=== PATIENT | male | born 1965 | race Caucasian/White ===

== ENCOUNTER 2020-08-07 23:54 | Emergency (ER) | payer OTHER ==
[2020-08-08] MEDS ORDERED: Sulfamethoxazole/Trimethoprim 800-160 MG Tab PO ONE (00:31)
[2020-08-08] MEDS ORDERED: Ibuprofen 600 MG Tab PO ONE (00:31)
[2020-08-08] MEDS ORDERED: traMADol 50 MG Tab PO ONE (00:31)
--- NOTE | 2020-08-08 00:34 | EDM.PDOC ---
ED HPI GENERAL MEDICAL PROBLEM - General Chief Complaint: Genitourinary Problem Time Seen by Provider: 08/08/20 00:13 - History of Present Illness INITIAL COMMENTS - FREE TEXT/NARRATIVE: HISTORY AND PHYSICAL: History of present illness: This is a 55-year-old gentleman who presents ER today secondary to pain to his perineal region. Patient reports that he feels like developed a bump in that area several days ago has been having a lot of discomfort. Patient reports that has been utilizing cream that was prescribed to him for his dry feet to the area without any improvement. Patient denies any recent fevers, shakes, chills, nausea, vomiting, diarrhea, dysuria, frequency, urgency, chest pain, shortness of breath. Patient reports pain discomfort when wiping his bottom however no pain with bowel movements. Patient denies any change in appetite. Patient denies any urinary changes at this time. Review of systems: As per history of present illness and below otherwise all systems reviewed and negative. Past medical history: As per history of present illness and as reviewed below otherwise noncontributory. Surgical history: As per history of present illness and as reviewed below otherwise noncontributory. Social history: No reported history of drug or alcohol abuse. Family history: As per history of present illness and as reviewed below otherwise noncontributory. Physical exam: Constitutional: Patient is oriented to person, place, and time. Appears well- developed and well-nourished. No distress. HEENT: Moist mucous membranes Head: Normocephalic and atraumatic Eyes: Right eye exhibits no discharge. Left eye exhibits no discharge. No scleral icterus Neck: Normal range of motion. No tracheal deviation present. Cardiovascular: Normal rate and regular rhythm. Pulmonary: Effort normal, no respiratory distress. Abdominal: No distention Musculoskeletal: Normal range of motion Neurologic: Alert and oriented to person, place and time. Skin: [place], warm and dry. Psychiatric: Normal mood and affect. Behavior is normal. Judgment and thought content normal. Nursing note and vital signs have been reviewed Patient's ER physical exam is significant for a 1 x 1 cm fluctuant mass to his perianal region at approximately the 4 o'clock position while laying in his left lateral decub. Patient has no tenderness or discomfort with rectal/digital examination. There is no abscess or fluctuance identified on rectal/digital exam. On examination of the abscess, it appears to be draining a small amount of purulent material. I have been able to exude a small amount of pus however there is still some fluctuance identified in that area. This patient was seen and evaluated during the 2019 SARS-CoV-2 novel coronavirus pandemic period. Community viral transmission is ongoing at time of this encounter and the emergency department is operating under pandemic response procedures. Therapeutics: Bactrim DS 2 p.o. twice daily x10 days. Ibuprofen 600 mg p.o. every 6 hours as needed Ultram 51 tablet p.o. x1 in ED Assessment and plan: 55-year-old gentleman with a perirectal abscess identified in the ED that has already spontaneously started to drain. I have attempted to remove as much purulent material through the self draining lesion however there is still a significant amount of purulent material. Patient has consented to incision and drainage of the abscess. 3 cc of lidocaine 1% was utilized to anesthetize the skin of the abscess. Utilizing 11 blade scalpel, I 1 cm incision was made and a moderate amount of purulent material and thick cheesy plug was exuded from the abscess. Patient tolerated procedure well felt much better after the procedure was completed. Patient will need to have a wound check in 2 to 3 days. Reassessment at the time of disposition demonstrates that the patient is in no acute distress. The patient has remained stable throughout the entire ED visit and is without objective evidence for acute process requiring urgent intervention or hospitalization. The patient is stable for discharge, counseling is provided as documented above, discussed symptomatic treatment and specific conditions for return. I have spoken with the patient/caregiver and discussed todays findings, in addition to providing specific details for the plan of care. Questions are answered and there is agreement with the plan. Definitive disposition and diagnosis as appropriate pending reevaluation and review of above. Scrotum Pain Score (Numeric/FACES): 7 - Related Data Allergies Allergy/AdvReac Type Severity Reaction Status Date / Time No Known Allergies Allergy Verified 08/08/20 00:12 Home Meds: Home Meds Ibuprofen 600 mg PO Q6HR PRN #30 tablet 08/08/20 [Rx] Sulfamethoxazole/Trimethoprim [Bactrim Ds Tablet] 2 each PO BID #40 tablet 08/08/20 [Rx] Past Medical History - Past Health History Medical/Surgical History: Denies Medical/Surgical History Social & Family History - Tobacco Use Tobacco Use Status *Q: Never Tobacco User Second Hand Smoke Exposure: No - Recreational Drug Use Recreational Drug Use: Yes Drug Use in Last 12 Months: Yes Recreational Drug Type: Reports: Marijuana/Hashish ED ROS GENERAL - Review of Systems Review Of Systems: See Below ED EXAM, GENERAL - Physical Exam Exam: See Below ED GENERAL MEDICAL PROCEDURES - Additional/Other Procedure(s) Other (Free Text) Procedure(s): Incision and drainage of pararectal abscess performed. Verbal consent obtained from patient. Area cleansed and prepped utilizing Betadine solution. Utilizing 3 cc of 1% lidocaine the skin over the abscess was anesthetized. Utilizing 11 blade scalpel a 1 cm incision was made and a moderate amount of purulent materi al and thick cheesy plug was removed without difficulty. Patient tolerated procedure well. Course - Vital Signs Last Recorded V/S: Last Vital Signs Temp 98.3 F 08/08/20 00:03 Pulse 67 08/08/20 00:03 Resp 14 08/08/20 00:03 BP 118/76 08/08/20 00:03 Pulse Ox 97 08/08/20 00:03 - Orders/Labs/Meds Meds: Medications Discontinued Medications Generic Name Dose Route Start Last Admin Trade Name Freq PRN Reason Stop Dose Admin Ibuprofen 600 mg 08/08/20 00:31 Motrin PO 08/08/20 00:32 ONETIME ONE Lidocaine HCl 5 ml 08/08/20 00:20 08/08/20 00:29 Xylocaine-Mpf 1% INJECT 08/08/20 00:21 5 ml ONETIME ONE Administration Tramadol HCl 50 mg 08/08/20 00:31 Ultram PO 08/08/20 00:32 ONETIME ONE Trimethoprim/Sulfamethoxazole 2 tab 08/08/20 00:31 Septra Ds PO 08/08/20 00:32 ONETIME ONE Departure - Departure Time of Disposition: 00:30 Disposition: Home, Self-Care 01 Condition: Good Clinical Impression: Perirectal abscess - Discharge Information Prescriptions: Sulfamethoxazole/Trimethoprim [Bactrim Ds Tablet] 2 each PO BID #40 tablet Ibuprofen 600 mg PO Q6HR PRN #30 tablet PRN Reason: Pain Instructions: Anorectal Abscess Referrals: PCP,None [Primary Care Provider] - Forms: ED Department Discharge Additional Instructions: Your seen and evaluated in the ER today secondary to a perirectal abscess. Your abscess already began to drain spontaneously. We performed an incision and drainage of the abscess to remove some of the thicker material that was not draining on its own. You will be started on Bactrim DS 2 tablets twice a day for 10 days. You will need to have a wound check in 2 to 3 days by your doctor if there is any new or concerning symptoms that you develop or if there is any worsening pain or discomfort. The following information is given to patients seen in the emergency department who are being discharged to home. This information is to outline your options for follow-up care. We provide all patients seen in our emergency department with a follow-up referral. The need for follow-up, as well as the timing and circumstances, are variable depending upon the specifics of your emergency department visit. If you don't have a primary care physician on staff, we will provide you with a referral. We always advise you to contact your personal physician following an emergency department visit to inform them of the circumstance of the visit and for follow-up with them and/or the need for any referrals to a consulting specialist. The emergency department will also refer you to a specialist when appropriate. This referral assures that you have the opportunity for follow-up care with a specialist. All of these measure are taken in an effort to provide you with optimal care, which includes your follow-up. Under all circumstances we always encourage you to contact your private physician who remains a resource for coordinating your care. When calling for follow-up care, please make the office aware that this follow-up is from your recent emergency room visit. If for any reason you are refused follow-up, please contact the [facility] Emergency Department at and asked to speak to the emergency department charge nurse. [facility] - Primary Care [address] [place] [id number] [address] Sepsis Event Note (ED) - Evaluation Sepsis Screening Result: No Definite Risk - Focused Exam Vital Signs: Vital Signs Temp Pulse Resp BP Pulse Ox 08/08/20 00:03 98.3 F 67 14 118/76 97
== END 2020-08-08 00:55 | disposition home or self-care (01) ==
LOC: MW.ED 23:54
DX: K61.1 Rectal abscess (principal)
CPT/HCPCS: 46040; 99283; A9270; J2001; 10060

== ENCOUNTER 2020-10-25 10:38 | Emergency (ER) | payer MEDICAID ==
--- NOTE | 2020-10-25 10:43 | EDM.PDOC ---
ED HPI GENERAL MEDICAL PROBLEM - General Chief Complaint: Lower Extremity Injury/Pain Stated Complaint: RT LEG Time Seen by Provider: 10/25/20 10:39 Source of Information: Reports: Patient History Limitations: Reports: No Limitations - History of Present Illness INITIAL COMMENTS - FREE TEXT/NARRATIVE: HISTORY AND PHYSICAL: History of present illness: Is a 55-year-old male presents to the emergency department with complaints of cellulitis to the right knee. It was previously incarcerated in long-term when he noticed redness to the right knee. States he was prescribed Bactrim and was given these medications before he was released today. He stated that he thought he would "load his system" and took 3 tablets on an empty stomach this a.m. he now complains of nausea and wants an evaluation of his skin. He does report having frequency of cellulitis/abscess over the previous 3 months. Patient denies any fever, chills, headache, change in vision, syncope or near syncope. Denies any chest pain, back pain, shortness of breath or cough. Denies any abdominal pain, vomiting, diarrhea, constipation or dysuria. Has not noted any blood in urine or stool. Patient has been eating and drinking appropriately. Review of systems: As per history of present illness and below otherwise all systems reviewed and negative. Past medical history: As per history of present illness and as reviewed below otherwise noncontributory. Surgical history: As per history of present illness and as reviewed below otherwise noncontributory. Social history: See social history for further information Family history: As per history of present illness and as reviewed below otherwise noncontributory. Physical exam: General: Well developed and well nourished. Alert and orientated x 3. Nontoxic in appearance and in no acute distress. Vital signs are stable and have been reviewed by me. Nursing notes were reviewed. HEENT: Atraumatic, normocephalic, pupils equal and reactive bilaterally, negative for conjunctival pallor or scleral icterus, mucous membranes moist, TMs normal bilaterally, throat clear, neck supple, nontender, trachea midline. No drooling or trismus noted. No meningeal signs. No hot potato voice noted. Lungs: Clear to auscultation bilaterally. No wheezes, rales, or rhonchi. Chest nontender. Normal work of breathing, no accessory muscles used. Heart: S1S2, regular rate and rhythm without overt murmur, gallops, or rubs. No JVD. No peripheral edema Abdomen: Soft, nondistended, nontender. Normoactive bowel sounds. Negative for masses or costovertebral tenderness. Pelvis: Stable nontender. Genitourinary/Rectal: Deferred. Skin: Diffuse erythema a proximal palmar size to the right lateral knee. Small pustule at the right lateral patellar that is nonfluctuant. Remaining skin is intact, warm, dry. No lesions or rashes noted. Hematologic: No petechiae or purpra. Mucosa appropriate color and normal nail bed color and refill. Extremities: See skin. Atraumatic, moves all extremities per self without difficulty or deficits, negative for cords or calf pain. Neurovascular unremarkable. Neuro: Awake, alert, oriented. Cranial nerves II through XII unremarkable. Cerebellum unremarkable. Motor and sensory unremarkable throughout. Exam nonfocal. Psychiatric: Mood and affect are appropriate. Normal thought process. Answering questions appropriately. Notes: *This patient was seen and evaluated during the 2019 SARS-CoV-2 novel coronavirus pandemic period. Community viral transmission is ongoing at time of this encounter and the emergency department is operating under pandemic response procedures. Patient took his prescribed Bactrim although he took 3 tablets instead of the prescribed 1 tablet this a.m. We will do basic lab work to ensure that he is a ppropriate for discharge. He states he has used Bactrim in the past with good results. Bob the site with a surgical marker so the patient can monitor signs of improvement. Patient left prior to basic lab work and medication administration. She is stable is on appropriate antibiotics and will return if needed. Diagnostics: CBC, CMP Therapeutics: Zofran ODT Prescription: None Impression: Left AGAINST MEDICAL ADVICE [place] Definitive disposition and diagnosis as appropriate pending reevaluation and review of above. - Related Data Allergies Allergy/AdvReac Type Severity Reaction Status Date / Time No Known Allergies Allergy Verified 10/25/20 10:51 Home Meds: Home Meds Ibuprofen 600 mg PO Q6HR PRN #30 tablet 08/08/20 [Rx] Sulfamethoxazole/Trimethoprim [Bactrim Ds Tablet] 2 each PO BID #40 tablet 08/08/20 [Rx] Past Medical History - Past Health History Medical/Surgical History: Denies Medical/Surgical History Review of Systems - Review of Systems Review Of Systems: Comprehensive ROS is negative, except as noted in HPI. ED EXAM, GENERAL - Physical Exam Exam: See Below (See dictation) Course - Vital Signs Last Recorded V/S: Last Vital Signs Temp 98.2 F 10/25/20 10:40 Pulse 119 H 10/25/20 10:40 Resp 18 10/25/20 10:40 BP 158/96 H 10/25/20 10:40 Pulse Ox 97 10/25/20 10:40 - Orders/Labs/Meds Orders: Active Orders 24 hr Category Date Time Status CBC WITH AUTO DIFF [HEME] Stat Lab 10/25/20 10:52 Ordered CMP [COMPREHENSIVE METABOLIC PN,CMP] [CHEM] Stat Lab 10/25/20 10:53 Ordered Ondansetron [Zofran ODT] Med 10/25/20 10:52 Once 4 mg PO ONETIME ONE Medication Orders Ondansetron HCl (Ondansetron 4 Mg Tab.Dis) 4 mg PO ONETIME ONE Stop: 10/25/20 10:53 Meds: Medications Generic Name Dose Route Start Last Admin Trade Name [place] PRN Reason Stop Dose Admin Ondansetron HCl 4 mg 10/25/20 10:52 Ondansetron 4 Mg Tab.Dis PO 10/25/20 10:53 ONETIME ONE Departure - Departure Time of Disposition: 11:03 Disposition: Against Medical Advice 07 Clinical Impression: Left against medical advice Cellulitis Qualifiers: Site of cellulitis: extremity Site of cellulitis of extremity: lower extremity Laterality: right Qualified Code(s): L03.115 - Cellulitis of right lower limb - Discharge Information Forms: ED Department Discharge Sepsis Event Note (ED) - Focused Exam Vital Signs: Vital Signs Temp Pulse Resp BP Pulse Ox 10/25/20 10:40 98.2 F 119 H 18 158/96 H 97 - My Orders Last 24 Hours: My Active Orders 10/25/20 10:52 CBC WITH AUTO DIFF [HEME] Stat Ondansetron [Zofran ODT] 4 mg PO ONETIME ONE 10/25/20 10:53 CMP [COMPREHENSIVE METABOLIC PN,CMP] [CHEM] Stat - Assessment/Plan Last 24 Hours: My Active Orders 10/25/20 10:52 CBC WITH AUTO DIFF [HEME] Stat Ondansetron [Zofran ODT] 4 mg PO ONETIME ONE 10/25/20 10:53 CMP [COMPREHENSIVE METABOLIC PN,CMP] [CHEM] Stat
[2020-10-25] MEDS ORDERED: Ondansetron 4 MG Tab.DIS PO ONE (10:52)
== END 2020-10-25 11:02 | disposition left against medical advice (07) ==
LOC: MW.ED 10:38
DX: Z53.29 Procedure and treatment not carried out because of patient's decision for other reasons (principal); L03.115 Cellulitis of right lower limb
CPT/HCPCS: 99283

== ENCOUNTER 2020-10-28 20:06 | Emergency (ER) | payer MEDICAID ==
[2020-10-28] MEDS ORDERED: Cephalexin 500 MG Cap PO ONE (22:07)
--- NOTE | 2020-10-28 22:09 | EDM.PDOC ---
ED HPI GENERAL MEDICAL PROBLEM - General Chief Complaint: Lower Extremity Injury/Pain Stated Complaint: RT LEG INFECTION Time Seen by Provider: 10/28/20 20:40 Source of Information: Reports: Patient History Limitations: Reports: No Limitations - History of Present Illness INITIAL COMMENTS - FREE TEXT/NARRATIVE: HISTORY AND PHYSICAL: History of present illness: Patient is a 55-year-old male who presents to the ED today with concern of abscess to his right thigh that is worsened when he woke up this morning. Patient states he was seen in the ED a few days ago and has been taking Bactrim DS as prescribed to him. Patient states that at the time in the ED a few days ago, the area of infection was outlined. Patient states the area of infection has become smaller and is improving, however, when he woke up this morning, noticed an abscess that had developed. Patient states he still has been taking the Bactrim as prescribed to him. Patient denies any other associative s ymptoms. Patient denies fever, chills, chest pain, shortness of breath, or cough. Denies headache, neck stiff ness, change in vision, syncope, or near syncope. Denies nausea, vomiting, abdominal pain, diarrhea, constipation, or dysuria. Has not noted any blood in urine or stool. Patient has been eating and drinking appropriately. Review of systems: As per history of present illness and below otherwise all systems reviewed and negative. Past medical history: As per history of present illness and as reviewed below otherwise noncontributory. Surgical history: As per history of present illness and as reviewed below otherwise noncontributory. Social history: See social history for further information Family history: As per history of present illness and as reviewed below otherwise no ncontributory. Physical exam: General: Patient is alert, oriented, and in no acute distress. Patient sitting comfortably on exam table. Vitals stable and reviewed by me. HEENT: Atraumatic, normocephalic, pupils equal and reactive bilaterally, negative for conjunctival pallor or scleral icterus, mucous membranes moist, TMs normal bilaterally, throat clear, neck supple, nontender, trachea midline. No drooling or trismus noted. No meningeal signs. No hot potato voice noted. Lungs: Clear to auscultation, breath sounds equal bilaterally, chest nontender. Heart: S1S2, regular rate and rhythm without overt murmur Abdomen: Soft, nondistended, nontender. Negative for masses or hepatosplenomegaly. Negative for costovertebral tenderness. Pelvis: Stable nontender. Genitourinary: Deferred. Rectal: Deferred. Skin: Intact, warm, dry. No lesions or rashes noted. Extremities: There is a 3cm subcutaneous abscess of the right distal anterior thigh just superior to the knee that does not involve the knee joint. There is surrounding cellulitis noted of the abscess. Patient has full range of motion of the complete right lower extremity without pain or difficulty. Dorsalis pedis and posterior tibial pulses are grossly intact of the right lower extremity with capillary refill less than 2 seconds. Otherwise, atraumatic, negative for cords or calf pain. Neurovascular unremarkable. Neuro: Awake, alert, oriented. Cranial nerves II through XII unremarkable. Cerebellum unremarkable. Motor and sensory unremarkable throughout. Exam nonfocal. Notes: On initial exam, patient does have an obvious abscess of his right distal anterior thigh with a surrounding cellulitis, but he is otherwise vitally stable and well-appearing. He has noted improvement of the surrounding cellulitis but states that this area of abscess has developed despite antibiotics. Will incision and drain the abscess as well as place on Keflex for additional coverage. We will also increase patient's Bactrim dose to 2 tabs twice daily. Patient remains vitally stable throughout stay in ED and well-appearing on exam. Strict return precautions thoroughly discussed with patient. Voices understanding and is agreeable to plan of care. Denies any further questions or concerns at this time. Diagnostics: None Therapeutics: I&D (see procedure note below), Lidocaine Prescription: Keflex Impression: Subcutaneous abscess, right thigh Cellulitis, right thigh Plan: 1. Take medication as prescribed. Increase your Bactrim dose to 2 tabs twice daily. 2. Keep the packing in for 48 hours as discussed then you can remove it at home. 3. Continue to monitor for signs of improving versus worsening infection as discussed. 4. You can alternate ibuprofen and Tylenol as directed for pain and discomfort. 5. Follow-up with a primary care provider as discussed. Return to the ED as needed and as discussed. Definitive disposition and diagnosis as appropriate pending reevaluation and review of above. Right leg Pain Score (Numeric/FACES): 10 - Related Data Allergies Allergy/AdvReac Type Severity Reaction Status Date / Time No Known Allergies Allergy Verified 10/28/20 20:51 Home Meds: Home Meds Ibuprofen 600 mg PO Q6HR PRN #30 tablet 08/08/20 [Rx] Sulfamethoxazole/Trimethoprim [Bactrim Ds Tablet] 2 each PO BID #40 tablet 08/08/20 [Rx] cephALEXin [Keflex] 500 mg PO Q8H 10 Days #30 cap 10/28/20 [Rx] Past Medical History - Past Health History Medical/Surgical History: Denies Medical/Surgical History - Infectious Disease History Infectious Disease History: Reports: None Social & Family History - Family History Family Medical History: No Pertinent Family History - Tobacco Use Tobacco Use Status *Q: Never Tobacco User - Caffeine Use Caffeine Use: Reports: None - Recreational Drug Use Recreational Drug Use: No Review of Systems - Review of Systems Review Of Systems: Comprehensive ROS is negative, except as noted in HPI. ED EXAM, GENERAL - Physical Exam Exam: See Below (see dictation) ED TRAUMA EXTREMITY PROCEDURES - I&D Site: Right distal anterior thigh Skin Prep: Providone-Iodine (Betadine) Local Anesthesia: Lidocaine: 1% Plain Local Anesthetic Volume: Other (10cc) Area Incised With: 11 Blade Drainage: Purulent, Bloody, Moderate Amount Probed to Break Up Loculations: Yes Packed With: 1/4 in. Iodoform Sterile Dressinx4(s) Complications: No Course - Vital Signs Last Recorded V/S: Last Vital Signs Temp 98.2 F 10/28/20 20:49 Pulse 94 10/28/20 22:17 Resp 18 10/28/20 22:17 BP 167/84 H 10/28/20 20:49 Pulse Ox 96 10/28/20 22:17 - Orders/Labs/Meds Orders: Active Orders 24 hr Category Date Time Status CULTURE WOUND [RM] Stat Lab 10/28/20 22:05 Received Meds: Medications Discontinued Medications Generic Name Dose Route Start Last Admin Trade Name Freq PRN Reason Stop Dose Admin Cephalexin 500 mg 10/28/20 22:07 10/28/20 22:15 Cephalexin 500 Mg Cap PO 10/28/20 22:08 500 mg ONETIME ONE Administration Lidocaine HCl 10 ml 10/28/20 21:39 10/28/20 21:42 Lidocaine 1% 5 Ml Sdv INJECT 10/28/20 21:40 10 ml ONETIME ONE Administration Lidocaine HCl Confirm 10/28/20 21:40 10/28/20 22:12 Lidocaine 1% 5 Ml Sdv Administered 10/28/20 21:41 Not Given Dose 10 ml .ROUTE .STK-MED ONE Departure - Departure Time of Disposition: 22:07 Disposition: Home, Self-Care 01 Clinical Impression: Subcutaneous abscess Qualifiers: Site of cutaneous abscess: extremity Site of cutaneous abscess of extremity: lower extremity Laterality: right Qualified Code(s): L02.415 - Cutaneous abscess of right lower limb Cellulitis Qualifiers: Site of cellulitis: extremity Site of cellulitis of extremity: lower extremity Laterality: right Qualified Code(s): L03.115 - Cellulitis of right lower limb - Discharge Information Prescriptions: cephALEXin [Keflex] 500 mg PO Q8H 10 Days #30 cap Instructions: Skin Abscess, Vbaf-ed-Kevt Referrals: PCP,None [Primary Care Provider] - Forms: ED Department Discharge Additional Instructions: The following information is given to patients seen in the emergency department who are being discharged to home. This information is to outline your options for follow-up care. We provide all patients seen in our emergency department with a follow-up referral. The need for follow-up, as well as the timing and circumstances, are variable depending upon the specifics of your emergency department visit. If you don't have a primary care physician on staff, we will provide you with a referral. We always advise you to contact your personal physician following an emergency department visit to inform them of the circumstance of the visit and for follow-up with them and/or the need for any referrals to a consulting specialist. The emergency department will also refer you to a specialist when appropriate. This referral assures that you have the opportunity for follow-up care with a specialist. All of these measure are taken in an effort to provide you with optimal care, which includes your follow-up. Under all circumstances we always encourage you to contact your private physician who remains a resource for coordinating your care. When calling for follow-up care, please make the office aware that this follow-up is from your recent emergency room visit. If for any reason you are refused follow-up, please contact the [facility] Emergency Department at and asked to speak to the emergency department charge nurse. [facility] [address] [place] [address] [facility] [address] [place] [address] 1. Take medication as prescribed. Increase your Bactrim dose to 2 tabs twice daily. 2. Keep the packing in for 48 hours as discussed then you can remove it at home. 3. Continue to monitor for signs of improving versus worsening infection as discussed. 4. You can alternate ibuprofen and Tylenol as directed for pain and discomfort. 5. Follow-up with a primary care provider as discussed. Return to the ED as needed and as discussed. Sepsis Event Note (ED) - Evaluation Sepsis Screening Result: No Definite Risk
== END 2020-10-28 22:18 | disposition home or self-care (01) ==
LOC: MW.ED 20:06 → EEVIPCON 20:06 → MW.ED 22:18
DX: L02.415 Cutaneous abscess of right lower limb (principal); L03.115 Cellulitis of right lower limb
CPT/HCPCS: 10060; 87070; 87077; 87186; 99283; A9270